=== PATIENT | female | born 1940 | race Caucasian/White ===

== ENCOUNTER 2017-03-30 15:06 | Emergency (ER) | payer OTHER ==
[2017-03-30 18:34] LABS: microscopic required? YES; urine erythrocyte 2+ (NEGATIVE)
[2017-03-30 18:37] LABS: BASOPHIL % 0.4 % (0-2); PLATELET COUNT 232 x10^3mcL (130-400); RED CELL DISTRIBUTION WIDTH 12.2 % (11.5-14.5)
[2017-03-30 21:15] VITALS: BP 140/65
== END 2017-03-30 21:15 | disposition home or self-care (01) ==
LOC: ED 15:06
PROVIDERS: Emergency Medicine
DX: N93.8 Other specified abnormal uterine and vaginal bleeding (principal); N39.0 Urinary tract infection, site not specified; N81.10 Cystocele, unspecified; E11.9 Type 2 diabetes mellitus without complications; E78.00 Pure hypercholesterolemia, unspecified; E07.9 Disorder of thyroid, unspecified
CPT/HCPCS: 36415; J1885

== ENCOUNTER 2019-04-09 08:55 | Emergency (ER) | payer OTHER ==
[~2019-04-09] VITALS: Ht 149.9 cm; Wt 59.0 kg
[2019-04-09 09:00] VITALS: Ht 149.9 cm; Wt 59.0 kg
[2019-04-09 11:09] LABS: BASOPHIL % 0.2 % (0-2); PLATELET COUNT 207 x10^3mcL (130-400); RED CELL DISTRIBUTION WIDTH 12.5 % (11.5-14.5)
[2019-04-09 11:11] LABS: CALCIUM 8.8 mg/dL (8.5-10.1); CARBON DIOXIDE 28.1 mmol/L (21-32); CHLORIDE SERUM 100 mmol/L (98-107); CREATININE SERUM 0.6 mg/dL (0.6-1.0); GLUCOSE SERUM 123 mg/dL (74-106); POTASSIUM SERUM 4.2 mmol/L (3.5-5.1); SODIUM SERUM 137 mmol/L (136-145)
[2019-04-09 11:15] LABS: ALBUMIN 3.5 g/dL (3.4-5.0); ALKALINE PHOSPHATASE 101 U/L (46-116); ALT/SGPT 21 U/L (14-59); AST/SGOT 28 U/L (15-37); BILIRUBIN TOTAL 0.8 mg/dL (0.20-1.00); HDL CHOLESTEROL 58 mg/dL (40-60); LIPASE 184 IU/L (73-393); TOTAL PROTEIN, SERUM 7.7 g/dL (6.4-8.2); TRIGLYCERIDES 84 mg/dL (<150)
[2019-04-09 11:16] LABS: CHOLESTEROL 120 mg/dL (<200); CHOLESTEROL/HDL RATIO 2.1
[2019-04-09 11:29] LABS: FREE T4 1.36 ng/dL (0.76-1.46); FREE THYROXINE INDEX 3.7 ug/dL (1.4-4.5); T4(THYROXINE) 10.1 ug/dL (4.7-13.3)
[2019-04-09 12:29] LABS: T3 TOTAL 1.03 ng/mL
[2019-04-09 14:31] VITALS: BP 131/62
== END 2019-04-09 14:57 | disposition short-term general hospital (02) ==
LOC: ED 08:55
PROVIDERS: Specialist
DX: S72.144A Nondisplaced intertrochanteric fracture of right femur, initial encounter for closed fracture (principal); S46.911A Strain of unspecified muscle, fascia and tendon at shoulder and upper arm level, right arm, initial encounter; J44.9 Chronic obstructive pulmonary disease, unspecified; E11.9 Type 2 diabetes mellitus without complications; W01.0XXA Fall on same level from slipping, tripping and stumbling without subsequent striking against object, initial encounter; Y93.89 Activity, other specified; Y92.89 Other specified places as the place of occurrence of the external cause; Y99.8 Other external cause status
CPT/HCPCS: 83880; 84439; J1885; J2270; J2405; J7030